=== PATIENT | female | born 1990 | race Caucasian/White ===

== ENCOUNTER 2017-09-22 13:02 | Emergency (ER) | payer OTHER ==
[~2017-09-22] VITALS: Ht 167.6 cm; Wt 71.1 kg
[2017-09-22 15:20] VITALS: BP 119/74
== END 2017-09-22 15:22 | disposition home or self-care (01) ==
LOC: EME 13:02
DX: S80.212A Abrasion, left knee, initial encounter (principal); V19.9XXA Pedal cyclist (driver) (passenger) injured in unspecified traffic accident, initial encounter; Y93.55 Activity, bike riding
CPT/HCPCS: 73564; 99281; 99284